=== PATIENT | male | born 1980 | race Caucasian/White ===

== ENCOUNTER 2017-08-24 10:12 | Day surgery (SDC) | payer BC, SELFPAY ==
[2017-08-24] VITALS (7 sets, daily range): BP systolic 127–142; BP diastolic 76–96; PULSE 55–73; RESP 16; TEMP 36–36.5; O2SAT 92–99; BMI 30.9
[2017-08-24] MEDS: Cefazolin 2 GM in 0.9% Normal Saline 100 ML IV (12:24)
--- NOTE | 2017-08-24 14:56 | PCM.DC.ORTHO ---
Discharge Diet: No Restrictions - may remove dressings and apply bandaids to incision sites after 4 days, may get incision wet after 4 days, may move elbow and hand as tolerated and do pendulums for shoulder Discharge Activity: May Not Drive May shower in (days): 1 Ice area for (Minutes): 20 - Every hour while awake. Weight Bearing Status: Weight bearing as tolerated Keep extremity elevated above heart level: Operative Extremity Call your doctor if your incision/area has: Continuous Slow Oozing, Sudden Increased Bleeding, Increased Pain/ Swelling, Increased Redness, Foul Smelling Discharge Call your doctor if you observe: Fever of 101 or Higher, Coldness, Increased Pain, Numbness or Tingling, Change in Color, Calf discomfort Allergies/Adverse Reactions: Allergies Tetanus Vaccines and Toxoid [Tetanus Vaccines & Toxoid] Allergy (Verified 08/17/17 15:32) Other COULD NOT MOVE ARM FOR 2 DAYS hydrocodone bitartrate [From Vicodin] Adverse Reaction (Verified 08/17/17 15:32) Nausea Medications to take at Discharge Amlodipine [Norvasc] 10 mg PO DAILY 05/21/15 acetaminophen 325 mg tablet 650 mg PO Q4H PRN 07/28/17 ibuprofen 200 mg capsule 200 mg PO PRN PRN 07/28/17 Ondansetron [Zofran] 8 mg PO Q8H PRN PRN #20 tab 08/24/17 Oxycodone HCl/Acetaminophen [Percocet 5/325] 1 - 2 tablet PO Q6H PRN PRN 4 Days #30 tablet 08/24/17 The following prescriptions were given: Oxycodone HCl/Acetaminophen [Percocet 5/325] 1 - 2 tablet PO Q6H PRN PRN 4 Days #30 tablet PRN Reason: Pain Ondansetron [Zofran] 8 mg PO Q8H PRN PRN #20 tab PRN Reason: Nausea Primary Care Physician: Carolyn Patel NP-C [Primary Care Provider] - Please Follow Up With: Jennifer Lujan DO - [phone]
--- NOTE | 2017-08-24 14:57 | PCM.OPRPT ---
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 MRI confirms anterior labral tear and biceps tendinosis. As well as some subacromial impingement. Risks benefits and alternatives surgery was discussed with patient. Risks including but not limited to blood loss, blood clot, infection, neurovascular injury, failure procedure, loss of life and loss of limb. Patient is failed conservative treatment like to proceed with right shoulder arthroscopy repair is indicated. Operative note Patient seen and examined preoperative holding area. Right shoulder was marked. Patient brought to the operating room placed supine on the operating table. Signing, anesthesia, antibiotics for Mr. The right shoulder patient was then placed in lateral decub on the left side and an axillary roll was placed on her left axilla. All bony prominences well-padded and the right arm was prepped and draped usual sterile fashion. Marked out a bony landmarks for our portal placement. Timeout was performed. We then began our diagnostic arthroscopy after insufflated the glenohumeral joint posteriorly with 60 cc of normal saline. We will I am able to visualize the anterior labrum which was torn off of the inferior edge to from about 6:00 to 11:00 and some cartilage damage on the anterior inferior aspect of the shoulder as well. We then created 2 anterior last one anterior lateral and anterior inferior portals under direct visualization and placed appropriate peripheral cannulas Arthrex and then. We then began with our release of the labrum off of the glenoid. We used elevator and then used the shaver to prep of the bone for good healing. We then placed our first suture tack that the about the 5 o'clock position and then a second at the 4 and there was single loaded we did tie horizontal sutures and getting a good bump with each not configuration. At the 330 position we then placed a 2 9 push lock using a looped fiber link and lateral configuration. We had good reduction of the inferior glenoid as well as her anterior inferior bumper. We then visualized the humerus from her anterior superior portal and noticed we had center line and the humeral head and the glenoid and no anterior posterior translation of the humeral head. We then did perform a biceps tenotomy. We then moved to our clinic subacromial space. We created a lateral portal under direct visualization. There was thickened bursa throughout. This was gently debrided with a accommodation of a shaver and a burner. He also had a type II acromion was gently resected with the bur as well. We irrigated the tocolysis with copious amounts of sterile saline. We then moved to her open biceps tenodesis. We reprepped the area and then used a 15 blade cut the skin about 2 cm in length and then dissected down to level the biceps tendon upon trying to relieve the biceps tendon was quite tethered proximally and was unable to release until approximately 3 decided that applied with scar and proximally did not need to perform a tenodesis to the left as is. We irrigated the incision with copious amounts of sterile saline. The incision was closed with interrupted subcutaneous 2-0 Vicryl in a running 4-0 Monocryl the portals were closed with interrupted 4-0 nylon stitches sterile dressings were applied patient was placed in ultra ER sling. Patient tolerated the procedure well there are no complications patient was transferred to the recovery room in stable condition. Next Postoperative note Nonweightbearing right lower extremity Pharmacy has prescriptions May use elbow as tolerated Call with increased pain numbness tingling or further issues arise Follow-up in 2 weeks This note was generated with [employer] dictation software. It may contain incorrect words, spelling, and punctuation that were not noted in checking the note before signing.
[2017-08-24] MEDS: Mupirocin Ointment 22gm Tube 1 APPLIC (15:00)
== END 2017-08-24 18:33 | disposition home or self-care (01) ==
LOC: SDC 10:13 → ACINP 10:16 → AC 13:56
PROVIDERS: Family Provider Nurse Practitioner Family; PCP Nurse Practitioner Family; Visit Provider Orthopaedic Surgery
PROC: (CPT 29828; principal; 2017-08-24 11:40)
DX: S43.431A Superior glenoid labrum lesion of right shoulder, initial encounter (principal); X58.XXXA Exposure to other specified factors, initial encounter; M75.41 Impingement syndrome of right shoulder; M25.311 Other instability, right shoulder; M75.21 Bicipital tendinitis, right shoulder; I49.9 Cardiac arrhythmia, unspecified; I10 Essential (primary) hypertension; G40.909 Epilepsy, unspecified, not intractable, without status epilepticus; F17.200 Nicotine dependence, unspecified, uncomplicated
CPT/HCPCS: 29806; 29822; 64415; J7030; J7120; J2405

== ENCOUNTER 2018-09-28 21:13 | Emergency (ER) | payer SELFPAY ==
[2018-09-28 21:14] VITALS: BP 149/89; PULSE 71; RESP 16; TEMP 36.9; O2SAT 96; BMI 32.1
[2018-09-28] MEDS: Acetaminophen 500 MG Tablet 1000 MG PO (22:14)
[2018-09-28] MEDS: LORazepam 2 MG/ML Syringe 1 MG IV (22:15)
--- NOTE | 2018-09-28 22:27 | ED.RN ---
CALLED TO ROOM BY PT'S SO, SHE STATES PT IS HAVING ANOTHER SEIZURE. THIS RN ARRIVED TO SEE PT WITH EYES CLOSED, SLIGHT MOVEMENTS WITH PT'S LIMBS. 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 AFTER SEVERAL SECONDS, PT OPENED EYSES AND STATES WHERE AM I?. PT ALERT, ABLE TO SIT UP AND TALK AFTER, TEXTING CELL PHONE. MD IN ROOM WELL.
[2018-09-28] MEDS: levETIRAcetam IV 1,000 MG/100 ML BAG 400 MG IV (22:53)
--- NOTE | 2018-09-28 23:44 | ED.DCSUM_ITS ---
- ER Visit Summary Date of Service: 09/28/18 Chief Complaint: Seizure History of Present Illness: The patient is a 37 M who sees Corrie Patel. He states he has not seen a neurologist for approximately 1 year. Is also not been on Dilantin for the past year. He reports he has had seizures for approximately 4 years and has had imaging for this. States his last seizure was approximately 1 month ago. States that all his seizures have been while he is asleep. Significant other reports that this evening he had been sleeping for a few minutes and had diffuse tonic-clonic activity lasted approximately 1 minute. There was a 1 minute break and then he had a second episode lasted approximately 1 minute. There is approximately 3-minute break and had a third episode lasted approximately 1 minute. He did seem confused afterwards. Patient did not bite his tongue. No urinary incontinence. Physical Examination: Vitals: Stable. Afebrile. General: Well-nourished and well-developed. Head: Normocephalic atraumatic. Neck: Supple, no lymphadenopathy. No JVD. Nontender. Cardiovascular: Regular rate and rhythm. No murmurs. Respiratory: No respiratory distress. Clear to auscultation bilaterally. Abdominal: Soft, nontender, nondistended, normal bowel sounds. No guarding, rebound, or peritoneal signs. Back: Nontender. Extremities: Nontender, no edema. Skin: Normal color, no rash. Neurologic: Alert and oriented ?3. Cranial nerves II through XII are intact. Normal strength and sensation. Psych: Normal affect. Emergency Department Course and Treatment: Patient had an episode in the emergency department where he was not asleep and had tonic-clonic activity lasted approximately 1 minute. There were no change in vital signs. He was not hypoxic at that time. He did not become tachycardic. However, he was given a dose of Ativan IV and Keppra IV. Treatment Plan: I have attempted to reach neurology for approximately 2 hours without success. Patient will be discharged on Keppra. Instructed to follow-up with Dr. Padilla as soon as possible. I had a very blunt conversation with the patient that he cannot drive again until he is cleared by neurology. I also spoke with him that this would be a minimum of 6 months. The patient does understand this. We talked about the risk of harm to himself or others if he had a seizure while driving. Return to the emergency department for any worsening symptoms. Disposition: To home in improved and stable condition. Impression: 1. Seizure, recurrent. This note was generated with [employer] software. It may contain incorrect words, spelling, and punctuation that were not noted in review of the chart prior to signing ED Disposition - Plan for ED Patient: Instructions: ED Seizure Recurrent Prescriptions: Levetiracetam [Keppra] 500 mg PO BID #60 tablet Referrals: Patrick Padilla MD [STAFF PHYSICIAN] - As soon as possible
[2018-09-29 00:05] VITALS: BP 121/79; PULSE 62; RESP 18; O2SAT 98
--- NOTE | 2018-09-29 00:14 | ED.RN ---
WRITTEN ON DISCHARGE ORDERS DO NOT DRIVE UNTIL CLEARED BY NEUROLOGY PT VERIFIES NO DRIVING ALLOWED WITH VERBALIZES A YES I UNDERSTAND.
== END 2018-09-29 00:16 | disposition home or self-care (01) ==
LOC: ED 21:58
PROVIDERS: Emergency Provider Emergency Medicine; Family Provider Nurse Practitioner Family; PCP Nurse Practitioner Family
DX: G40.909 Epilepsy, unspecified, not intractable, without status epilepticus (principal); I10 Essential (primary) hypertension; Z79.899 Other long term (current) drug therapy; Z72.0 Tobacco use
CPT/HCPCS: 96365; 96375; 99285; J7040; A4216

== ENCOUNTER 2018-12-15 20:56 | Emergency (ER) | payer SELFPAY ==
[2018-12-15 20:56] VITALS: BP 152/83; PULSE 74; RESP 16; TEMP 36.8; O2SAT 98; BMI 32.5
[2018-12-15 21:43] VITALS: BP 151/82; PULSE 66; RESP 16; O2SAT 95; O2SAT 97
--- NOTE | 2018-12-15 22:25 | EKG12_ITS ---
Test Reason : COLD SX Blood Pressure : / mmHG Vent. Rate : 063 BPM Atrial Rate : 063 BPM P-R Int : 140 ms QRS Dur : 098 ms QT Int : 400 ms P-R-T Axes : 033 064 058 degrees QTc Int : 409 ms Normal sinus rhythm Normal ECG Confirmed by HECTOR ALVARADO, NAZARIO ([id number]), index editor KUMAR LOZANO ([id number]) on 12/19/2018 8:53:55 AM Referred By: BB Confirmed By:NAZARIO YOUNG MD
[2018-12-15 22:38] VITALS: BP 145/90; PULSE 60; RESP 18; O2SAT 96
[2018-12-15] MEDS: 0.9% Normal Saline 1,000 ML 1000 ML IV (22:39)
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
[2018-12-15 22:51] LABS: Absolute Lymphocyte Count 3.28 X10^3/ul (0.83-4.51); Absolute Neutrophil Count 6.7 X10^3/uL (2.0-7.7); Basophil# 0.02 X10^3/uL; Basophil% 0.2 % (0-1); Eosinophil# 0.23 X10^3/uL; Eosinophils% 2.1 % (0-5); Hematocrit 40.3 % (40-54); Hemoglobin 13.8 g/dl (13.0-16.5); Lymphocyte # 3.28 X10^3/ul (4.0); Mean Corp Hgb Conc 34.2 g/gl (32-36); Mean Corpuscular Hgb 29.2 pg (27.0-32.0); Mean Corpuscular Volume 85.2 fL (80-94); Mean Platelet Vol. 10.6 fl (6.2-12.0); Monocyte# 0.71 X10^3/uL; Monocyte% 6.5 % (0-10); Neutrophil # 6.66 X10^3/uL (2.7-7.7); Platelet Count 225 K/mm3 (150-450); RBC Distribution Width CV 14.2 % (11.6-14.6); RBC Distribution Width SD 44.8 fl (35.1-43.9); Red Blood Count 4.73 M/mm3 (4.6-6.2); White Blood Count 10.9 K/mm3 (4.4-11.0)
[2018-12-15 22:52] LABS: POSITIVE COUNT NO; POSITIVE DIFFERENTIAL NO; POSITIVE MORPHOLOGY NO
[2018-12-15 23:08] LABS: Anion Gap 7 (5-15); BUN 18 mg/dL (7-18); BUN/Creat Ratio 17.1 RATIO (10-20); Calcium,Total 8.8 mg/dL (8.5-10.1); Chloride 109 mmol/L (98-107); Creatinine, Serum 1.05 mg/dL (0.70-1.30); EST Glomerular Filtration Rate 85 mL/min (>60); Est Glom Filt Rate - Afr Amer 103 mL/min (>60); Glucose 97 mg/dL (74-106); Potassium 3.6 mmol/L (3.5-5.1); Sodium Level 140 mmol/L (136-145)
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
[2018-12-16] MEDS: Ketorolac 30 MG/ML Syringe IV (00:15)
[2018-12-16 00:22] VITALS: BP 138/75; PULSE 63; RESP 16; O2SAT 97
== END 2018-12-16 00:23 | disposition home or self-care (01) ==
PROVIDERS: Emergency Provider Emergency Medicine; Family Provider Nurse Practitioner Family; PCP Nurse Practitioner Family
DX: B34.9 Viral infection, unspecified (principal); R07.9 Chest pain, unspecified; R51 Headache; I10 Essential (primary) hypertension; G40.909 Epilepsy, unspecified, not intractable, without status epilepticus; Z79.899 Other long term (current) drug therapy; Z72.0 Tobacco use
CPT/HCPCS: 71046; 80048; 84484; 85025; 93005; 96374; 99285; J7030

== ENCOUNTER 2018-12-29 20:37 | Emergency (ER) | payer SELFPAY ==
[2018-12-29 20:38] VITALS: BP 152/88; PULSE 88; RESP 16; TEMP 36.1; O2SAT 97; BMI 32.5
--- NOTE | 2018-12-29 21:02 | RAD_ITS ---
STUDY: X-RAY - RIGHT WRIST REASON FOR EXAM: Male, 38 years old. Wrist pain TECHNIQUE: 3 view(s) of the wrist were obtained. COMPARISON: None. FINDINGS: Normal visualized distal radius and ulna. Normal radiocarpal articulation. Normal distal radioulnar articulation. 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 Normal carpometacarpal articulation of the thumb. Normal second through fifth carpometacarpal articulations. Normal visualized metacarpal bones. There is soft tissue edema.. RAD/Wrist min 3 Views IMPRESSION: Soft tissue edema Partial bony fusion of carpal bones, no fractures Electronically Signed: Ervin Arboleda, at 21:26 EDT Tel , Service support ,
[2018-12-29] MEDS: Naproxen 500 MG Tablet PO (21:25)
--- NOTE | 2018-12-29 21:43 | ED.VISSUMM ---
- ER Visit Summary Date of Service: 12/29/18 Chief Complaint: Right wrist injury History of Present Illness: The patient is a 38 M who was sitting on the volar right wrist by a baseball. He has an area of swelling and redness. He denies paresthesias. Physical Examination: Vital signs unremarkable. Patient lying in bed no acute distress. Right upper extremity examination reveals hematoma on the volar distal right forearm. Strong hand grasp is noted. There is no tenderness to the elbow or shoulder. Test Results: Right wrist x-rays obtained per nursing protocol revealed soft tissue edema with no evidence of fracture. Emergency Department Course and Treatment: Patient is given naproxen and ice pack here. Following x-ray results area is wrapped with an Piyush wrap. Treatment Plan: [] Disposition: Discharge Impression: Right wrist contusion This note was generated with [employer] dictation software. It may contain incorrect words, spelling, and punctuation that were not noted in review of the chart prior to signing ED Disposition - Plan for ED Patient: Disposition: Home or Assisted Living Instructions: CONTUSION, Upper Extremity Prescriptions: Naproxen [Naprosyn] 500 mg PO BID PRN #20 tab Prescription Printed Referrals: Carolyn Patel NP-C [Primary Care Provider] - 1 Week if not improving
== END 2018-12-29 21:53 | disposition home or self-care (01) ==
PROVIDERS: Emergency Provider Emergency Medicine; Family Provider Nurse Practitioner Family; PCP Nurse Practitioner Family
DX: S60.211A Contusion of right wrist, initial encounter (principal); W21.03XA Struck by baseball, initial encounter; I10 Essential (primary) hypertension; Z72.0 Tobacco use
CPT/HCPCS: 73110; 99283

== ENCOUNTER 2019-01-13 02:16 | Emergency (ER) | payer SELFPAY ==
[2019-01-13 02:17] VITALS: BP 147/96; PULSE 79; RESP 28; TEMP 36.5; O2SAT 100; BMI 31.6
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
--- NOTE | 2019-01-13 02:32 | ED.VIS.DYS ---
History of Present Illness Chief Complaint: Shortness of Breath Informant: Patient Onset: Today Activity at onset: Sleep Timing: Continuous Quality: Wheezing Current Severity: Moderate Maximum Severity: Moderate Worsened by: Coughing, Exertion Relieved by: Rest Associated Symptoms: Bloody Sputum - scant amt just today, Clear sputum, Cough - x1 week, Sore throat - mild, scratchy. Negative for: Fever Chest Pain: None PE Risk Factors: Negative for: Cancer, OCP + Smoking + > 35, Prior DVT or PE, Recent immobilization, Recent surgery, Recent travel Prior similar symptoms: Yes - 2-3 wks ago, steroids helped Recent Illness/Hospitalization: No - Past Medical History (1) HTN (hypertension) Status: Chronic Past Medical History - Allergies and Home Meds Allergies/Adverse Reactions: Allergies Tetanus Vaccines and Toxoid [Tetanus Vaccines & Toxoid] Allergy (Verified 01/13/19 02:19) Other COULD NOT MOVE ARM FOR 2 DAYS hydrocodone bitartrate [From Vicodin] Adverse Reaction (Verified 01/13/19 02:19) Nausea lorazepam [From Ativan] Adverse Reaction (Verified 01/13/19 02:19) Other MOOD CHANGES Primary Care Physician: Carolyn Patel NP-C [Primary Care Provider] - Smoking Status: Current every day smoker Drugs: None Physical Exam Vital Signs/Narrative: Vital Signs Temp Pulse Resp BP Pulse Ox 01/13/19 02:17 97.7 F L 79 28 H 147/96 H 100 Inital Vital Signs reviewed: Yes General: Well nourished, Well developed, No Acute Distress Head: Normocephalic, Atraumatic Eyes: Perrl, EOMI ENT: Moist mucous membranes, No rhinorrhea, TM's clear, - - POP clear, symmetric, w/o exudates. Negative for: Sinus tenderness Neck: Supple, Nontender, No lymphadenopathy, No JVD Cardiovascular: Regular rate, Regular rhythm, No murmurs, Normal S1, Normal S2. Negative for: Tachycardia Respiratory: No distress, Chest nontender, Wheezing - harsh, throughout expiration all cisneros, - - prolonged expiration. Negative for: Rales, Rhonchi Abdomen: Soft, Nontender, Nondistended, Normal bowel sounds Back: Nontender, Normal Inspection Extremities: Nontender, No edema. Negative for: Calf Tenderness Skin: Normal color, No rash, No Trauma Neurological: Alert, Oriented x3, Cranial nerves II-XII grossly intact, Normal Strength, Normal Sensation Psychological: Normal affect, Normal Mood Diagnostic/Tx/Re-eval Clinical Impression(s) from Imaging Studies Chest X-Ray 01/13/19 02:31 IMPRESSION: Negative x-ray examination of the chest. Electronically Signed: Selvin Costa, at 3:10 EDT Tel , Service support , Treatment - Dyspnea: Albuterol, Atrovent Repeat Evaluation: Improved - Medical Decision Making After treatment, he is feeling better. Still a little wheezy, declines offer for more treatments. Vital signs are stable. Pulse ox is good. Chest x-ray shows no pneumonia. Will treat with steroids and advised that he follow-up with pulmonary, given a prescription for an albuterol inhaler as well. He is comfortable with that plan. I do not see any indication for antibiotics at this time. ED Disposition - Plan for ED Patient: Disposition: Home or Assisted Living Diagnosis: Acute bronchitis, Reactive airway disease Instructions: BRONCHITIS with Wheezing (Adult) Prescriptions: predniSONE tablet 40 mg PO DAILY #8 tab Prescription Printed Albuterol Inhaler [Ventolin Hfa] 1 - 2 puff INHALATION Q4H PRN PRN #1 inhaler PRN Reason: Wheezing Prescription Printed Referrals: Carolyn Patel NP-C [Primary Care Provider] - Keyur Santo DO [STAFF PHYSICIAN] - (call for pulmonary appt)
[2019-01-13 02:37] VITALS: PULSE 73; RESP 22
[2019-01-13] MEDS: Ipratropium/Albuterol Sulfate 3 ML AMPUL.NEB INHALATION (02:37)
[2019-01-13] MEDS: Albuterol 2.5 MG/3 ML VIAL.NEB. INHALATION (02:37)
[2019-01-13] MEDS: predniSONE 20 MG Tablet 40 MG PO (03:02)
[2019-01-13 03:32] VITALS: BP 140/101; PULSE 72; RESP 16; O2SAT 100
== END 2019-01-13 03:33 | disposition home or self-care (01) ==
PROVIDERS: Emergency Provider Emergency Medicine; Family Provider Nurse Practitioner Family; PCP Nurse Practitioner Family
DX: J20.9 Acute bronchitis, unspecified (principal); J45.909 Unspecified asthma, uncomplicated; I10 Essential (primary) hypertension; F17.200 Nicotine dependence, unspecified, uncomplicated; Z79.899 Other long term (current) drug therapy
CPT/HCPCS: 71046; 94640; 99283

== ENCOUNTER 2019-02-06 07:04 | Emergency (ER) | payer SELFPAY ==
[2019-02-06 07:05] VITALS: BP 188/96; PULSE 79; RESP 18; TEMP 36.4; O2SAT 96; BMI 33.4
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
[2019-02-06] MEDS: 0.9% Normal Saline 1,000 ML 999 ML IV (08:06)
[2019-02-06] MEDS: Ketorolac 30 MG/ML Syringe IV (09:25)
[2019-02-06 09:37] VITALS: BP 151/102; PULSE 60; RESP 16; O2SAT 97
== END 2019-02-06 09:38 | disposition home or self-care (01) ==
PROVIDERS: Emergency Provider Emergency Medicine; Family Provider Nurse Practitioner Family; PCP Nurse Practitioner Family
DX: S02.2XXA Fracture of nasal bones, initial encounter for closed fracture (principal); W21.07XA Struck by softball, initial encounter; Y93.9 Activity, unspecified; Y92.9 Unspecified place or not applicable; I10 Essential (primary) hypertension; G40.909 Epilepsy, unspecified, not intractable, without status epilepticus; Z79.899 Other long term (current) drug therapy; Z72.0 Tobacco use
CPT/HCPCS: 70450; 96361; 96374; 99283; J7030; A4216

== ENCOUNTER 2019-05-21 07:53 | Emergency (ER) | payer SELFPAY ==
[2019-05-21 07:56] VITALS: BP 155/101; PULSE 71; RESP 18; TEMP 37; O2SAT 96; BMI 33.9
--- NOTE | 2019-05-21 08:09 | CT_ITS ---
STUDY: CT BRAIN WITHOUT CONTRAST REASON FOR EXAM: Male, 38 years old. Headaches. Lightheadedness and seizure disorder. RADIATION DOSAGE (If Supplied By Facility): CTDIvol = ( 44.99 ) mGy, DLP = ( 745.49 ) mGycm TECHNIQUE: Transaxial CT imaging of the brain was performed without administration of intravenous contrast material. Individualized dose optimization techniques were used for this CT. COMPARISON: Comparison is made with prior study dated February 06, 2019. FINDINGS: Normal soft tissue structures. Normal calvarium. Normal size ventricles and extra-axial spaces for the patient's age. Normal white matter tracts of the cerebral hemispheres. Normal basal ganglia and thalami. Normal brainstem. Normal cerebellum. There is no intracranial hemorrhage. There are no findings of an acute ischemic infarction. Normal visualized paranasal sinuses. CT/Brain/Head without Contrast IMPRESSION: Normal unenhanced CT scan of the brain. Electronically Signed: Mairn Recio, at 8:32 EST , Service support ,
--- NOTE | 2019-05-21 08:09 | EKG12_ITS ---
Test Reason : DIZZY Blood Pressure : / mmHG Vent. Rate : 067 BPM Atrial Rate : 067 BPM P-R Int : 136 ms QRS Dur : 098 ms QT Int : 380 ms P-R-T Axes : 030 047 078 degrees QTc Int : 401 ms Normal sinus rhythm Normal ECG Confirmed by HECTOR ALVARADO, NAZARIO ([id number]), index editor HARDIK HENDERSON ([id number]) on 05/22/2019 1:50:17 PM Referred By: CASIMIRO/SVITLANA Confirmed By:NAZARIO YOUNG MD
--- NOTE | 2019-05-21 08:13 | ED.DCSUM_ITS ---
- ER Visit Summary Date of Service: 05/21/19 Chief Complaint: Dizzy, blurry vision History of Present Illness: The patient is a 38 M who has dizziness and blurry vision. He will this way when he was driving home. He describes it more as a spinning sensation. He has a headache and heartburn as well. He checked his blood pressure multiple times at work last night and it was high and then came down. He does have a history of hypertension and is been medication compliant. Denies any falls or head trauma. His main complaint now is of a headache. He has no neck pain. No history of migraine headaches. Physical Examination: Vital signs reviewed. HEENT exam unremarkable. Heart is regular rate and rhythm without murmurs. Lungs are clear to auscultation. Abdomen is soft and nontender. Extremities reveal no edema. Skin exam normal. Neurologic exam normal. Test Results: EKG is sinus rhythm with rate of 67. Nonspecific inferior changes noted. CAT scan of the head normal. Laboratory studies are normal except for a white blood cell count of 12.5. Emergency Department Course and Treatment: Patient was given normal saline and Toradol. Upon reevaluation at 0 930, his symptoms are improved. He is feeling better. I am not clear as to what is causing his symptoms. The headache could be causing his dizziness. At this point I will give him naproxen to help with headaches at home. He will increase hydration and will follow up with his PCP. Treatment Plan: [] Disposition: Discharge Impression: Dizziness, headache This note was generated with [employer] dictation software. It may contain incorrect words, spelling, and punctuation that were not noted in review of the chart prior to signing ED Disposition - Plan for ED Patient: Referrals: Carolyn Patel, ENRIQUETA-C [Primary Care Provider] -
[2019-05-21 08:18] LABS: Absolute Lymphocyte Count 3.21 X10^3/uL (0.83-4.51); Absolute Neutrophil Count 8.1 X10^3/uL (2.0-7.7); Basophil# 0.04 X10^3/uL; Basophil% 0.3 % (0-1); Eosinophils% 1.6 % (0-5); Hematocrit 42.5 % (40-54); Hemoglobin 14.4 g/dL (13.0-16.5); Lymphocyte # 3.21 X10^3/ul (4.0); Lymphocyte % 25.8 % (19-41); Mean Corp Hgb Conc 33.9 g/dL (32-36); Mean Corpuscular Hgb 28.6 pg (27.0-32.0); Mean Corpuscular Volume 84.3 fL (80-94); Mean Platelet Vol. 11.1 fl (6.2-12.0); Monocyte# 0.83 X10^3/uL; Monocyte% 6.7 % (0-10); NRBC Flagged by Analyzer 0 % (0-5); Neutrophil # 8.08 X10^3/uL (2.7-7.7); Neutrophil % 64.9 % (47-70); Platelet Count 247 K/mm3 (150-450); RBC Distribution Width CV 13.3 % (11.6-14.6); RBC Distribution Width SD 41.1 fl (35.1-43.9); Red Blood Count 5.04 M/mm3 (4.6-6.2); White Blood Count 12.5 K/mm3 (4.4-11.0)
[2019-05-21 08:39] LABS: ALB/GLOB Ratio 1.2 RATIO (0.9-2.4); AST(SGOT) 16 U/L (15-37); Alanine Aminotransfer ALT/SGPT 27 U/L (16-61); Albumin, Serum 3.9 g/dL (3.2-5.0); Alkaline Phosphatase 60 U/L (45-117); Anion Gap 6 (5-15); BUN 19 mg/dL (7-18); BUN/Creat Ratio 17.8 RATIO (10-20); Calcium,Total 9.4 mg/dL (8.5-10.1); Chloride 107 mmol/L (98-107); Creatinine, Serum 1.07 mg/dL (0.70-1.30); EST Glomerular Filtration Rate 83 mL/min (>60); Est Glom Filt Rate - Afr Amer 100 mL/min (>60); Estimated Creatinine Clearance 92.34 ml/min; Globulin 3.2 g/dL (2.2-4.2); Glucose 95 mg/dL (74-106); Potassium 3.7 mmol/L (3.5-5.1); Protein, Total 7.1 g/dL (6.4-8.2); Sodium Level 138 mmol/L (136-145)
[2019-05-21] MEDS: 0.9% Normal Saline 1,000 ML 1000 ML IV (09:01)
[2019-05-21] MEDS: Ketorolac 30 MG/ML Syringe IV (09:01)
--- NOTE | 2019-05-21 09:35 | ED.DEP ---
ED Disposition - Plan for ED Patient: Disposition: Home or Assisted Living Instructions: DIZZINESS, Unk Cause Prescriptions: Naproxen [Naprosyn] 500 mg PO BID PRN #20 tab Prescription Printed Referrals: Carolyn Patel NP-C [Primary Care Provider] -
== END 2019-05-21 09:46 | disposition home or self-care (01) ==
PROVIDERS: Emergency Provider Emergency Medicine; Family Provider Nurse Practitioner Family; PCP Nurse Practitioner Family
DX: R42 Dizziness and giddiness (principal); R51 Headache; I10 Essential (primary) hypertension; G40.909 Epilepsy, unspecified, not intractable, without status epilepticus; F17.200 Nicotine dependence, unspecified, uncomplicated; Z79.899 Other long term (current) drug therapy
CPT/HCPCS: 70450; 80053; 84484; 85025; 93005; 96361; 96374; 99285; J7030; A4216

== ENCOUNTER → 2019-07-07 09:40 | Outpatient (CLI) | payer BC, SELFPAY ==
[2019-06-20 09:16] VITALS: BMI 33.9
--- NOTE | 2019-07-07 09:41 | MRI_ITS ---
HISTORY: Right hand cyst at area of base of fifth metacarpal. Sixth series. 164 images. Comparison x-rays are from December 29, 2018. Findings: Motion artifact is fairly severe. This is especially present on the axial STIR series. This significantly limits the utility of the study. Within the subcutaneous fat, confluence with the skin, there is a lesion. It is confined to the fat, and does not involve the superficial muscles. The lesion appears to be prominent causing a bulge within the skin. It measures 9 x 11 x 6 mm. It is hyperintense relative to adjacent muscles. On T1-weighted imaging. It is hypointense relative to adjacent fat on T1-weighted imaging. It is hyperintense relative to fat and muscle on the STIR series. It is slightly heterogeneous in signal. Marrow signal is normal. Bony alignment is normal. Joint spaces are preserved. Flexor and extensor tendons are normal in signal and continuous throughout their course. The median and ulnar nerves are not enlarged. MRI/Upper Ext/No Jt/ wo IMPRESSION: 9 x 11 x 6 mm nodule within the subcutaneous fat at the base of the fifth metatarsal, just barely superficial to the adductor digiting minimi. This tumor is of unknown etiology. It could be something as simple as a benign granuloma, however, soft tissue tumors such as giant cell tumor of the soft parts, cutaneous angiomyolipoma, and more insidious lesions remain within the differential. at 0624 Reported and signed by: Jose Cruz Lopez MD Electronically Signed: Jose Cruz Lopez MD at 6:23 EST Tel , Service support ,
== END ==
LOC: MRI 09:41
PROVIDERS: Family Provider Nurse Practitioner Family; PCP Nurse Practitioner Family; Referring Provider Orthopaedic Surgery; Visit Provider Orthopaedic Surgery
DX: R22.31 Localized swelling, mass and lump, right upper limb (principal)
CPT/HCPCS: 73218

== ENCOUNTER → 2019-08-09 11:51 | Outpatient (CLI) | payer SELFPAY ==
[2019-06-20 09:16] VITALS: BMI 33.9
--- NOTE | 2019-08-09 11:56 | RAD_ITS ---
STUDY: X-RAY - LEFT HAND, ATTENTION INDEX FINGER REASON FOR EXAM: Male, 38 years old. Patient smashed his left index finger in to pieces of equipment 2 days ago. Pain, swelling and laceration to left index finger PIP joint. TECHNIQUE: 3 view(s) of the finger were obtained. COMPARISON: None. FINDINGS: Normal metacarpal head. Normal metacarpophalangeal joint. Normal proximal phalanx. Normal middle phalanx. Normal distal phalanx. Normal proximal interphalangeal joint. Normal distal interphalangeal joint. Diffuse soft tissue swelling. RAD/Finger(s) Min 2 Views IMPRESSION: Diffuse soft tissue swelling. Electronically Signed: Marin Recio, at 12:22 EST , Service support ,
== END ==
LOC: RAD 11:54
PROVIDERS: PCP Nurse Practitioner Family; Referring Provider Nurse Practitioner Family; Visit Provider Nurse Practitioner Family
DX: S69.92XA Unspecified injury of left wrist, hand and finger(s), initial encounter (principal); W23.0XXA Caught, crushed, jammed, or pinched between moving objects, initial encounter
CPT/HCPCS: 73140

== ENCOUNTER 2019-09-06 15:24 | Emergency (ER) | payer SELFPAY ==
[2019-06-20 09:16] VITALS: BMI 33.9
[2019-09-06 15:26] VITALS: BP 139/74; PULSE 76; RESP 18; TEMP 36.7; O2SAT 97; BMI 34.2
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
--- NOTE | 2019-09-06 16:22 | EKG12_ITS ---
Test Reason : CHEST PAIN Blood Pressure : / mmHG Vent. Rate : 068 BPM Atrial Rate : 068 BPM P-R Int : 146 ms QRS Dur : 092 ms QT Int : 386 ms P-R-T Axes : 040 050 054 degrees QTc Int : 410 ms Normal sinus rhythm with sinus arrhythmia Nonspecific T wave abnormality Abnormal ECG Confirmed by CAPO ALVARADO, RANDA ([id number]), assistant production editor KUMAR LOZANO ([id number]) on 09/10/2019 9:49:54 AM Referred By: AYLIN Confirmed By:RANDA SCANLON MD
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
[2019-09-06] MEDS: morphine 8 MG/ML Syringe IM (16:30)
[2019-09-06] MEDS: Ondansetron ODT 4 MG Tablet PO (16:30)
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
[2019-09-06 18:01] VITALS: BP 131/77; PULSE 62; RESP 15; O2SAT 98
--- NOTE | 2019-09-13 21:04 | ED.RN ---
patient called in asking about doctor who cared for him for insurance information
== END 2019-09-06 18:02 | disposition home or self-care (01) ==
LOC: ED 16:44
PROVIDERS: Emergency Provider Emergency Medicine; PCP Nurse Practitioner Family
DX: S16.1XXA Strain of muscle, fascia and tendon at neck level, initial encounter (principal); S20.212A Contusion of left front wall of thorax, initial encounter; V89.2XXA Person injured in unspecified motor-vehicle accident, traffic, initial encounter; Y93.89 Activity, other specified; Y92.9 Unspecified place or not applicable; I10 Essential (primary) hypertension; Z72.0 Tobacco use
CPT/HCPCS: 71101; 72040; 93005; 96372; 99283

== ENCOUNTER 2020-01-02 22:52 | Emergency (ER) | payer BC, SELFPAY ==
[2019-11-12 13:08] VITALS: BMI 34.2
[2020-01-02 22:55] VITALS: BP 149/106; PULSE 79; RESP 17; TEMP 36.9; O2SAT 97; BMI 37.4
--- NOTE | 2020-01-02 23:05 | CT_ITS ---
STUDY: CT BRAIN WITHOUT CONTRAST REASON FOR EXAM: Male, 39 years old. WHILE PLAYING SOFTBALL PT HIT HEAD ON FENCE THEN SEIZED TWICE PER BYSTANDERS, PT HAS HX SZ DISORDER RADIATION DOSAGE (If Supplied By Facility): CTDIvol = ( 44.99 ) mGy, DLP = ( 745.49 ) mGycm TECHNIQUE: Transaxial CT imaging of the brain was performed without administration of intravenous contrast material. Individualized dose optimization techniques were used for this CT. COMPARISON: May 21, 2019 FINDINGS: Normal soft tissue structures. Normal calvarium. Normal size ventricles and extra-axial spaces for the patient''s age. Normal white matter tracts of the cerebral hemispheres. Normal basal ganglia and thalami. Normal brainstem. Normal cerebellum. There is no intracranial hemorrhage. There are no findings of an acute ischemic infarction. Normal visualized paranasal sinuses. CT/Brain/Head without Contrast IMPRESSION: Normal unenhanced CT scan of the brain. Electronically Signed: Chino Lim MD at 23:58 EDT , Service support ,
[2020-01-02] MEDS: Ketorolac 30 MG/ML Syringe IV (23:17)
[2020-01-02] MEDS: 0.9% Normal Saline 1,000 ML 999 ML IV (23:17)
--- NOTE | 2020-01-02 23:17 | ED.VIS.GEN ---
History of Present Illness Chief Complaint: Seizure Informant: Patient Onset: Today - JPTA Context: Sudden Onset - after injury; see below Timing: Intermittent - x 2, Lasts - unk Quality: unk Location: k Current Severity: gone Maximum Severity: Severe Relieved by: nothing, spontaneously abated Associated Symptoms: global headache, myalgias all over Narrative: Patient states he was playing softball, he was playing in the outfield and went to catch a ball, but accidentally ran into the fence, and immediately had a seizure. When it stopped he then had another 1, timing and nature/details of the symptoms are unknown at this time. The patient is amnestic to all of these details and events, he was not conscious. 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 He has a history of high blood pressure for which he takes medication now and nothing else. Other than headache, mildly blurry vision globally, and feeling sore all over, he feels back to normal. - Past Medical History (1) Seizures Status: Chronic (2) HTN (hypertension) Status: Chronic Past Medical History - Allergies and Home Meds Allergies/Adverse Reactions: Allergies Tetanus Vaccines and Toxoid [Tetanus Vaccines & Toxoid] Allergy (Verified 01/02/20 23:02) Other COULD NOT MOVE ARM FOR 2 DAYS hydrocodone bitartrate [From Vicodin] Adverse Reaction (Verified 01/02/20 23:02) Nausea lorazepam [From Ativan] Adverse Reaction (Verified 01/02/20 23:02) Other MOOD CHANGES Primary Care Physician: Carolyn Patel NP-C [Primary Care Provider] - Smoking Status: Current every day smoker Drugs: None Review of Systems General: Reports: Malaise. Denies: Chills, Fever, Sweats Eyes: Reports: Blurred Vision - bilaterally - Nonfocal. Denies: Diplopia ENT: Denies: Rhinorrhea, Sore throat Cardiovascular: Denies: Chest pain, Palpitations Respiratory: Denies: Dyspnea, Cough, Dyspnea on exertion Gastrointestinal: Denies: Abdominal pain, Nausea, Vomiting, Diarrhea, Melena, Hematochezia Genitourinary: Denies: Dysuria, Hematuria, Frequency Musculoskeletal: Reports: Myalgias. Denies: Neck pain, Back pain, Swelling, Extremity Pain Skin: Denies: Rash, Wounds Neurological: Reports: Headache. Denies: Weakness, Numbness Physical Exam Vital Signs/Narrative: Vital Signs Temp Pulse Resp BP Pulse Ox 01/02/20 22:55 98.4 F 79 17 149/106 H 97 Inital Vital Signs reviewed: Yes General: Well nourished, Well developed, No Acute Distress - Well-appearing, conversive in full sentences Head: Normocephalic, Atraumatic - No tenderness elicited throughout scalp, no signs of trauma, no jim sign. Eyes: Perrl, EOMI ENT: Moist mucous membranes, No rhinorrhea, TM's clear - No hemotympanum or otorrhea. No nasal or facial trauma. Neck: Supple, Nontender, No lymphadenopathy Cardiovascular: Regular rate, Regular rhythm, No murmurs Respiratory: No distress, CTA bilaterally, Chest nontender Abdomen: Soft, Nontender, Nondistended, Normal bowel sounds Back: Nontender, Normal Inspection Extremities: Nontender, No edema Skin: Normal color, No rash, No Trauma Neurological: Alert, Oriented x3, Cranial nerves II-XII grossly intact, Normal Strength, Normal Sensation, Normal DTR, Normal Gait Psychological: Normal affect, Normal Mood Diagnostic/Tx/Re-eval Impressions Brain CT 01/02/20 23:05 IMPRESSION: Normal unenhanced CT scan of the brain. Electronically Signed: Chino Lim MD at 23:58 EDT , Service support , 01/02/20 23:05 Brain/Head without Contrast [CT] Stat Laboratory Results 01/02/20 01/02/20 23:20 23:20 WBC 11.9 H RBC 5.35 Hgb 15.2 Hct 44.4 MCV 83.0 MCH 28.4 MCHC 34.2 RDW Std Deviation 39.0 RDW Coeff of Radha 13.0 Plt Count 281 MPV 10.9 Immature Gran % (Auto) 1.000 H Neut % (Auto) 63.5 Lymph % (Auto) 26.5 [place] % (Auto) 6.9 Eos % (Auto) 1.8 Baso % (Auto) 0.3 Absolute Neuts (auto) 7.6 Absolute Lymphs (auto) 3.16 Nucleated RBC % 0 Sodium 138 Potassium 3.1 L Chloride 104 Carbon Dioxide 29.0 Anion Gap 5 BUN 13 Creatinine 1.24 Estim Creat Clear Calc 78.91 Est GFR (MDRD) Af Amer 84 Est GFR (MDRD) Non-Af 70 BUN/Creatinine Ratio 10.5 Glucose 94 Calcium 8.7 - Medical Decision Making Patient was observed for 1-2 hours without any further seizure activity. He was given IV fluids and Toradol and felt improved. Work-up is as above. Mild leukocytosis likely due to demargination if the patient had true seizure activity. Hypokalemia likely due to shift only from metabolic acidosis due to lactate, I suspect. Hence, the IV fluids. He is feeling well and has a family member here, she did not witness the seizure but does not seem surprised, states that when they occur they usually very brief. They agree with discharge home without antiepileptics at this time, unless he ends up having another seizure without repeat trauma, avoiding driving, and following up with his neurologist. He already happens to have an appointment about 2 weeks away which I think is fine if he has no other seizures. We discussed reasons to return. They are comfortable with that plan. ED Disposition - Plan for ED Patient: Disposition: Home or Assisted Living Diagnosis: Closed head injury without loss of consciousness, Post-traumatic seizures Instructions: ED Seizure Recurrent Adult, ED Head Injury Adult Referrals: Carolyn Patel, ENRIQUETA-C [Primary Care Provider] - Neurologist, your [Other] (as scheduled, or sooner (or ER) if another seizure before then)
[2020-01-02 23:32] LABS: Absolute Lymphocyte Count 3.16 X10^3/uL (0.83-4.51); Absolute Neutrophil Count 7.6 X10^3/uL (2.0-7.7); Basophil# 0.04 X10^3/uL; Basophil% 0.3 % (0-1); Eosinophil# 0.21 X10^3/uL; Eosinophils% 1.8 % (0-5); Hematocrit 44.4 % (40-54); Hemoglobin 15.2 g/dL (13.0-16.5); Lymphocyte # 3.16 X10^3/ul (4.0); Lymphocyte % 26.5 % (19-41); Mean Corp Hgb Conc 34.2 g/dL (32-36); Mean Corpuscular Hgb 28.4 pg (27.0-32.0); Mean Platelet Vol. 10.9 fl (6.2-12.0); Monocyte# 0.82 X10^3/uL; Monocyte% 6.9 % (0-10); NRBC Flagged by Analyzer 0 % (0-5); Neutrophil # 7.56 X10^3/uL (2.7-7.7); Neutrophil % 63.5 % (47-70); Platelet Count 281 K/mm3 (150-450); Red Blood Count 5.35 M/mm3 (4.6-6.2); White Blood Count 11.9 K/mm3 (4.4-11.0)
[2020-01-02 23:40] LABS: Anion Gap 5 (5-15); BUN 13 mg/dL (7-18); BUN/Creat Ratio 10.5 RATIO (10-20); Calcium,Total 8.7 mg/dL (8.5-10.1); Chloride 104 mmol/L (98-107); Creatinine, Serum 1.24 mg/dL (0.70-1.30); EST Glomerular Filtration Rate 70 mL/min (>60); Est Glom Filt Rate - Afr Amer 84 mL/min (>60); Estimated Creatinine Clearance 78.91 ml/min; Glucose 94 mg/dL (74-106); Potassium 3.1 mmol/L (3.5-5.1); Sodium Level 138 mmol/L (136-145)
[2020-01-03 00:11] VITALS: BP 132/87; PULSE 65; RESP 14; O2SAT 97
== END 2020-01-03 00:13 | disposition home or self-care (01) ==
PROVIDERS: Emergency Provider Emergency Medicine; PCP Nurse Practitioner Family
DX: S09.90XA Unspecified injury of head, initial encounter (principal); W22.8XXA Striking against or struck by other objects, initial encounter; Y93.64 Activity, baseball; Y92.320 Baseball field as the place of occurrence of the external cause; Y99.8 Other external cause status; G40.909 Epilepsy, unspecified, not intractable, without status epilepticus; I10 Essential (primary) hypertension; F17.200 Nicotine dependence, unspecified, uncomplicated; Z79.899 Other long term (current) drug therapy
CPT/HCPCS: 70450; 80048; 85025; 96361; 96374; 99285; J7030; A4216

== ENCOUNTER 2020-03-04 10:09 | Emergency (ER) | payer BC, SELFPAY ==
[2020-03-04 10:09] VITALS: BP 122/83; PULSE 60; RESP 22; TEMP 37.2; O2SAT 98; BMI 33.5
--- NOTE | 2020-03-04 10:31 | US_ITS ---
STUDY: SCROTUM ULTRASOUND REASON FOR EXAM: Male, 39 years old. TESTICULAR PAIN X 2 DAYS TECHNIQUE: Ultrasound evaluation of the scrotum was performed with color Doppler and static helm-scale imaging. COMPARISON: None. FINDINGS: RIGHT TESTICLE INTRATESTICULAR: There is a normal size of the right testicle. The right testicle measures 5 cm x 3 cm x 2.6 cm. There is a homogenous echotexture. There is normal arterial and normal venous vascularity. There is no demonstrated right testicular mass or cyst. EXTRATESTICULAR: The epididymis is normal in size. The epididymis head measures 1.3 cm x 1.3 cm x 0.8 cm. There is normal vascularity of the epididymis. There is no demonstrated epididymal cystic structure. There is a moderate size hydrocele. There are prominent extratesticular veins consistent with a small varicocele. There is no demonstrated extratesticular mass or cyst. LEFT TESTICLE INTRATESTICULAR: There is a normal size of the left testicle. The left testicle measures 5 cm x 3.2 cm x 2.7 cm. There is a homogenous echotexture. There is normal arterial and normal venous vascularity. There is no demonstrated left testicular mass or cyst. EXTRATESTICULAR: The epididymis is normal in size. The epididymis head measures 1 cm x 0.9 cm x 0.5 cm. There is normal vascularity of the epididymis. There is a well-defined cystic structure within the epididymis, without internal echoes, consistent with an epididymal cyst. This measures 3 mm. There is a small hydrocele. There are prominent extratesticular veins consistent with a small varicocele. There is no demonstrated extratesticular mass or cyst. US/Testicular with Arterial Flow IMPRESSION: Bilateral hydroceles right greater than left. Small bilateral varicoceles. Electronically Signed: Marin Recio, at 12:17 EDT , Service support ,
--- NOTE | 2020-03-04 10:33 | ED.VIS.GEN ---
History of Present Illness Chief Complaint: Flank Pain Informant: Patient Narrative: Patient is a 39-year-old male with a history of hypertension who presents to the ED for left testicular pain. Initially started yesterday. Has progressively getting worse today. Rates the pain as an 8 out of 10. He states he has had a twisted testicle before in the past but denies ever going through any surgery for this. The pain does radiate up into his low of his back on the left side. He does not know aggravating or relieving factors. Took some ibuprofen for yesterday which did not give much relief. No associated abdominal pain. No change in bowel habits. No nausea/vomiting. Denies any fevers or chills. No urinary symptoms including any dysuria, frequency or hematuria. No concern for STDs. He denies any chest pain or shortness of breath. Past Medical History - Allergies and Home Meds Allergies/Adverse Reactions: Allergies Tetanus Vaccines and Toxoid [Tetanus Vaccines & Toxoid] Allergy (Verified 03/04/20 10:20) Other COULD NOT MOVE ARM FOR 2 DAYS hydrocodone bitartrate [From Vicodin] Adverse Reaction (Verified 03/04/20 10:20) Nausea lorazepam [From Ativan] Adverse Reaction (Verified 03/04/20 10:20) Other MOOD CHANGES Primary Care Physician: Gen Penny MD [STAFF PHYSICIAN] - 2 Days Carolyn Patel NP-C [Primary Care Provider] - Past Medical History: - - Seizures, hypertension Smoking Status: Current every day smoker Alcohol: Occasional Drugs: None Review of Systems All systems negative except as indicated General: Denies: Chills, Fever, Sweats Eyes: Denies: Visual changes - bilaterally, Diplopia ENT: Denies: Rhinorrhea, Sore throat Cardiovascular: Denies: Chest pain, Palpitations Respiratory: Denies: Dyspnea, Cough, Dyspnea on exertion Gastrointestinal: Denies: Abdominal pain, Nausea, Vomiting, Diarrhea, Melena, Hematochezia Genitourinary: Reports: - - Testicular pain. Denies: Dysuria, Hematuria, Frequency Musculoskeletal: Reports: Back pain. Denies: Extremity Pain Skin: Denies: Rash, Wounds Neurological: Denies: Headache, Weakness, Numbness Physical Exam Vital Signs/Narrative: Vital Signs Temp Pulse Resp BP Pulse Ox 03/04/20 10:09 98.9 F 60 22 H 122/83 H 98 Inital Vital Signs reviewed: Yes General: Well nourished, Well developed, No Acute Distress Head: Normocephalic, Atraumatic Eyes: Perrl, EOMI ENT: Moist mucous membranes, No rhinorrhea Neck: Supple, Nontender Cardiovascular: Regular rate, Regular rhythm, No murmurs Respiratory: No distress, CTA bilaterally, Chest nontender Abdomen: Soft, Nontender, Nondistended, Normal bowel sounds : - - Patient has tenderness with palpation of the left testicle. No significant swelling present. Rest of exam normal. Back: Normal Inspection, - - Mild tenderness to palpation of the lower left back. No CVA tenderness. Extremities: Nontender, No edema Skin: Normal color, No rash Neurological: Alert, Oriented x3, Cranial nerves II-XII grossly intact, Normal Strength, Normal Sensation Psychological: Normal affect, Normal Mood Diagnostic/Tx/Re-eval - Medical Decision Making Patient presents to the ED for left testicular pain. Sounds like he potentially had a testicular torsion before in the past. Will obtain ultrasound to evaluate for this now. Patient's urinalysis did not show any acute abnormality. No red blood cells. Ultrasound was obtained which did not show any evidence of torsion. Patient is feeling better after treatment. He does have a hydrocele as well as varicoceles. We will have him follow-up with outpatient urology. Patient does feel comfortable this plan. If he develops any worsening symptoms he understands that he could still develop a torsion. If this develops he is to return to the emergency department. At this time will discharge home in stable condition. He understands and is agreeable this plan. ED Disposition - Plan for ED Patient: Disposition: Home or Assisted Living Diagnosis: Testicular pain, left, Hydrocele in adult, Varicocele Instructions: ED Hydrocele Type Not Specified, ED Testicular Pain [facility], ED Varicocele Referrals: Carolyn Patel NP-C [Primary Care Provider] - Gen Penny MD [STAFF PHYSICIAN] - 2 Days
[2020-03-04] MEDS: Ketorolac 30 MG/ML Syringe IV (10:46)
[2020-03-04 10:56] LABS: Mucous, Urine 0 SEEN /hpf (<or=2+); Red Blood Cells-Urine 0 SEEN /hpf (0-5); Squamous Epithelial Cells - UA 0 SEEN /hpf (0-5); White Blood Cells 0 SEEN /hpf (0-5)
[2020-03-04 11:08] LABS: Color, Urine Straw (Yellow); Glucose, Dipstick Normal (Normal); Ketone-Dipstick Negative (Negative); Leukocyte Esterase-Dipstick Negative /ul (Negative); Nitrite-Dipstick Negative (Negative); Occult Blood-Urine Negative /ul (Negative); Protein-Dipstick Negative (Negative); Urine Bilirubin Dipstick Negative (Negative); Urine Clarity Clear (Clear); Urine Urobilinogen Normal (Normal)
[2020-03-04 11:14] LABS: Bacteria RARE /hpf (None Seen)
[2020-03-04 12:45] VITALS: BP 114/69; RESP 18
== END 2020-03-04 12:46 | disposition home or self-care (01) ==
PROVIDERS: Emergency Provider Emergency Medicine; PCP Nurse Practitioner Family
DX: N43.3 Hydrocele, unspecified (principal); I86.1 Scrotal varices; I10 Essential (primary) hypertension; F17.200 Nicotine dependence, unspecified, uncomplicated
CPT/HCPCS: 76870; 81001; 93976; 96374; 99284; A4216

== ENCOUNTER 2020-03-09 14:29 | Emergency (ER) | payer BC, SELFPAY ==
[2020-03-09 14:30] VITALS: BP 150/99; PULSE 79; RESP 18; TEMP 36.2; O2SAT 97; BMI 33.4
--- NOTE | 2020-03-09 15:16 | ED.VIS.GEN ---
History of Present Illness Chief Complaint: Suicidal Informant: Patient, - - Police Narrative: Patient presents the emergency department with the police for evaluation of depression and suicidality. Dion is a 39-year-old male who states that this morning his served him with divorce papers. He states that he has a history of anxiety and depression and has done counseling in the past. Currently takes amitriptyline in addition to his hypertension medications. Per the pink slip filled up with the police he reportedly made comments about hanging he was located driving his vehicle where he told police he had gone down to the street [place] in order to find peace. There was a report given to the police that he had placed a cord around his neck. Patient's is asking how long this process evaluation will take as he would like to go to work in the morning. He denies any new medications. He denies any change in doses of medications. He denies any wounds to his body. He denies any alcohol or drug ingestion today. 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 Past Medical History - Allergies and Home Meds Allergies/Adverse Reactions: Allergies Tetanus Vaccines and Toxoid [Tetanus Vaccines & Toxoid] Allergy (Verified 03/09/20 14:30) Other COULD NOT MOVE ARM FOR 2 DAYS hydrocodone bitartrate [From Vicodin] Adverse Reaction (Verified 03/09/20 14:30) Nausea lorazepam [From Ativan] Adverse Reaction (Verified 03/09/20 14:30) Other MOOD CHANGES Primary Care Physician: Carolyn Patel NP-C [Primary Care Provider] - Smoking Status: Current every day smoker Review of Systems General: Denies: Chills, Fever, Sweats Eyes: Denies: Visual changes - bilaterally, Diplopia ENT: Denies: Rhinorrhea, Sore throat Cardiovascular: Denies: Chest pain, Palpitations Respiratory: Denies: Dyspnea, Cough, Dyspnea on exertion Gastrointestinal: Denies: Abdominal pain, Nausea, Vomiting, Diarrhea, Melena, Hematochezia Genitourinary: Denies: Dysuria, Hematuria, Frequency Musculoskeletal: Denies: Back pain, Extremity Pain Skin: Denies: Rash, Wounds Neurological: Denies: Headache, Weakness, Numbness Psych: Reports: Depression, Anxiety, Suicidal thoughts Physical Exam Vital Signs/Narrative: Vital Signs Temp Pulse Resp BP Pulse Ox 03/09/20 14:30 97.2 F L 79 18 150/99 H 97 General: Well nourished, Well developed, No Acute Distress Head: Normocephalic, Atraumatic Eyes: Perrl, EOMI ENT: Moist mucous membranes, No rhinorrhea Neck: Supple, Nontender Cardiovascular: Regular rate, Regular rhythm, No murmurs Respiratory: No distress, CTA bilaterally, Chest nontender Abdomen: Soft, Nontender, Nondistended, Normal bowel sounds Back: Nontender, Normal Inspection Extremities: Nontender, No edema Skin: Normal color, No rash Neurological: Alert, Oriented x3, Cranial nerves II-XII grossly intact, Normal Strength, Normal Sensation Psychological: Normal affect, Normal Mood, - - Patient is cooperative. He admits to feeling depressed but denies feeling suicidal at this point. He does demonstrate some forward thinking. He makes eye contact. Diagnostic/Tx/Re-eval Laboratory Last Values WBC 13.4 K/mm3 (4.4-11.0) H 03/09/20 15:10 RBC 5.89 M/mm3 (4.6-6.2) 03/09/20 15:10 Hgb 16.5 g/dL (13.0-16.5) 03/09/20 15:10 Hct 49.4 % (40-54) 03/09/20 15:10 MCV 83.9 fL (80-94) 03/09/20 15:10 MCH 28.0 pg (27.0-32.0) 03/09/20 15:10 MCHC 33.4 g/dL (32-36) 03/09/20 15:10 RDW Std Deviation 41.5 fl (35.1-43.9) 03/09/20 15:10 RDW Coeff of Radha 13.6 % (11.6-14.6) 03/09/20 15:10 Plt Count 321 K/mm3 (150-450) 03/09/20 15:10 MPV 10.5 fl (6.2-12.0) 03/09/20 15:10 Immature Gran % (Auto) 0.500 % (0.0-0.9) 03/09/20 15:10 Neut % (Auto) 77.7 % (47-70) H 03/09/20 15:10 Lymph % (Auto) 15.7 % (19-41) L 03/09/20 15:10 [place] % (Auto) 5.1 % (0-10) 03/09/20 15:10 Eos % (Auto) 0.8 % (0-5) 03/09/20 15:10 Baso % (Auto) 0.2 % (0-1) 03/09/20 15:10 Absolute Neuts (auto) 10.4 X10^3/uL (2.0-7.7) H 03/09/20 15:10 Absolute Lymphs (auto) 2.11 X10^3/uL (0.83-4.51) 03/09/20 15:10 Nucleated RBC % 0 % (0-5) 03/09/20 15:10 Sodium 138 mmol/L (136-145) 03/09/20 15:10 Potassium 3.6 mmol/L (3.5-5.1) 03/09/20 15:10 Chloride 107 mmol/L (98-107) 03/09/20 15:10 Carbon Dioxide 27.0 mmol/L (21.0-32.0) 03/09/20 15:10 Anion Gap 4 (5-15) L 03/09/20 15:10 BUN 11 mg/dL (7-18) 03/09/20 15:10 Creatinine 1.22 mg/dL (0.70-1.30) 03/09/20 15:10 Estim Creat Clear Calc 80.20 ml/min 03/09/20 15:10 Est GFR (MDRD) Af Amer 86 mL/min (>60) 03/09/20 15:10 Est GFR (MDRD) Non-Af 71 mL/min (>60) 03/09/20 15:10 BUN/Creatinine Ratio 9.0 RATIO (10-20) L 03/09/20 15:10 Glucose 104 mg/dL (74-106) 03/09/20 15:10 Calcium 9.1 mg/dL (8.5-10.1) 03/09/20 15:10 Total Bilirubin 0.50 mg/dL (0.20-1.00) 03/09/20 15:10 AST 12 U/L (15-37) L 03/09/20 15:10 ALT 31 U/L (16-61) 03/09/20 15:10 Alkaline Phosphatase 75 U/L (45-117) 03/09/20 15:10 Total Protein 7.7 g/dL (6.4-8.2) 03/09/20 15:10 Albumin 4.2 g/dL (3.2-5.0) 03/09/20 15:10 Globulin 3.5 g/dL (2.2-4.2) 03/09/20 15:10 Albumin/Globulin Ratio 1.2 RATIO (0.9-2.4) 03/09/20 15:10 TSH 1.53 uIU/mL (0.358-3.74) 03/09/20 15:10 Urine Opiates Screen NEGATIVE (< 300 ng/mL) 03/09/20 15:25 Urine Methadone Screen NEGATIVE (< 300 ng/mL) 03/09/20 15:25 Ur Barbiturates Screen NEGATIVE (< 200 ng/mL) 03/09/20 15:25 Ur Phencyclidine Scrn NEGATIVE (< 25 ng/mL) 03/09/20 15:25 Ur Amphetamines Screen NEGATIVE (<1000 ng/mL) 03/09/20 15:25 U Methamphetamin-MDMA NEGATIVE (< 500 ng/mL) 03/09/20 15:25 U Benzodiazepines Scrn NEGATIVE (< 200 ng/mL) 03/09/20 15:25 Urine Cocaine Screen NEGATIVE (< 300 ng/mL) 03/09/20 15:25 U Cannabinoids Screen POSITIVE (< 50 ng/mL) H 03/09/20 15:25 Ur Drug Screen Comment 03/09/20 15:25 Ethyl Alcohol < 3.0 mg/dL 03/09/20 15:10 - Medical Decision Making Patient was medically cleared for psychiatric evaluation. Crisis was called and interviewed the patient. Patient is currently not suicidal. Counseling center is going to safety plan him and arrange follow-up. Return if worsening or concerns ED Disposition - Plan for ED Patient: Disposition: Home or Assisted Living Diagnosis: Major depression Instructions: ED Depression, CONTRACT, No Harm Referrals: Counseling,Center [GROUP OF PHYSICIANS] - As soon as possible
[2020-03-09 15:26] LABS: Absolute Lymphocyte Count 2.11 X10^3/uL (0.83-4.51); Absolute Neutrophil Count 10.4 X10^3/uL (2.0-7.7); Basophil# 0.03 X10^3/uL; Basophil% 0.2 % (0-1); Eosinophil# 0.11 X10^3/uL; Eosinophils% 0.8 % (0-5); Hematocrit 49.4 % (40-54); Hemoglobin 16.5 g/dL (13.0-16.5); Lymphocyte # 2.11 X10^3/ul (4.0); Lymphocyte % 15.7 % (19-41); Mean Corp Hgb Conc 33.4 g/dL (32-36); Mean Corpuscular Volume 83.9 fL (80-94); Mean Platelet Vol. 10.5 fl (6.2-12.0); Monocyte# 0.68 X10^3/uL; Monocyte% 5.1 % (0-10); NRBC Flagged by Analyzer 0 % (0-5); Neutrophil # 10.43 X10^3/uL (2.7-7.7); Neutrophil % 77.7 % (47-70); Platelet Count 321 K/mm3 (150-450); RBC Distribution Width CV 13.6 % (11.6-14.6); RBC Distribution Width SD 41.5 fl (35.1-43.9); Red Blood Count 5.89 M/mm3 (4.6-6.2); White Blood Count 13.4 K/mm3 (4.4-11.0)
[2020-03-09 15:37] LABS: Alcohol, Blood (Medical)-Serum < 3.0 mg/dL
[2020-03-09 15:44] VITALS: RESP 15
[2020-03-09 15:49] LABS: ALB/GLOB Ratio 1.2 RATIO (0.9-2.4); AST(SGOT) 12 U/L (15-37); Alanine Aminotransfer ALT/SGPT 31 U/L (16-61); Albumin, Serum 4.2 g/dL (3.2-5.0); Alkaline Phosphatase 75 U/L (45-117); Anion Gap 4 (5-15); BUN 11 mg/dL (7-18); Calcium,Total 9.1 mg/dL (8.5-10.1); Chloride 107 mmol/L (98-107); Creatinine, Serum 1.22 mg/dL (0.70-1.30); EST Glomerular Filtration Rate 71 mL/min (>60); Est Glom Filt Rate - Afr Amer 86 mL/min (>60); Globulin 3.5 g/dL (2.2-4.2); Glucose 104 mg/dL (74-106); Potassium 3.6 mmol/L (3.5-5.1); Protein, Total 7.7 g/dL (6.4-8.2); Sodium Level 138 mmol/L (136-145); Thyroid Stim Hormone (TSH) 1.53 uIU/mL (0.358-3.74)
[2020-03-09 15:50] LABS: Amphetamine Urine VISTA NEGATIVE (<1000 ng/mL); Barbiturate Urine VISTA NEGATIVE (< 200 ng/mL); Benzodiazepine Urine VISTA NEGATIVE (< 200 ng/mL); Cocaine Urine VISTA NEGATIVE (< 300 ng/mL); Ecstacy Urine VISTA NEGATIVE (< 500 ng/mL); Methadone Urine VISTA NEGATIVE (< 300 ng/mL); PCP Urine VISTA NEGATIVE (< 25 ng/mL); THC Urine VISTA POSITIVE (< 50 ng/mL); Vista UDS pH Range 5
--- NOTE | 2020-03-09 16:01 | ED.RN ---
CONTACTED [facility]. REQUEST THAT CHART BE FAXED AND WORKER WILL CALL AFTER REVIEWING IT
--- NOTE | 2020-03-09 16:30 | ED.RN ---
PT DOES NOT WANT MOTHER TO KNOW HE IS HERE OR SPEAK WITH HIM .
[2020-03-09 16:54] VITALS: RESP 15
--- NOTE | 2020-03-09 17:08 | ED.RN ---
ILYA GARRIDO CALLED FROM THE [facility]SELING [facility].
[2020-03-09 18:23] VITALS: BP 148/83; PULSE 66; RESP 15
== END 2020-03-09 18:24 | disposition home or self-care (01) ==
PROVIDERS: Emergency Provider Emergency Medicine; PCP Nurse Practitioner Family
DX: F32.9 Major depressive disorder, single episode, unspecified (principal); F41.9 Anxiety disorder, unspecified; I10 Essential (primary) hypertension; F17.200 Nicotine dependence, unspecified, uncomplicated
CPT/HCPCS: 80053; 80307; 80320; 84443; 85025; 99283; G0480

== ENCOUNTER 2020-11-26 06:00 | Emergency (ER) | payer BC, SELFPAY ==
[2020-11-26 06:01] VITALS: BP 151/98; PULSE 55; RESP 16; TEMP 35.8; O2SAT 98; BMI 36.2
--- NOTE | 2020-11-26 06:04 | EKG12_ITS ---
Test Reason : TRAUMA Blood Pressure : / mmHG Vent. Rate : 052 BPM Atrial Rate : 052 BPM P-R Int : 150 ms QRS Dur : 100 ms QT Int : 436 ms P-R-T Axes : 040 067 092 degrees QTc Int : 405 ms Sinus bradycardia Otherwise normal ECG Confirmed by LYNETTE ALVARADO, GEORGES ([id number]), scientific editor KUMAR LOZANO ([id number]) on 11/28/2020 11:38:51 A M Referred By: RUSTAM Confirmed By:XIAO OJEDA MD
--- NOTE | 2020-11-26 06:05 | CT_ITS ---
STUDY: CT ABDOMEN AND PELVIS WITH CONTRAST REASON FOR EXAM: Male, 39 years old. Pain after falling down stairs. TECHNIQUE: Transaxial images were obtained from the dome of the diaphragm to the symphysis pubis without oral contrast. IV 100mL Isovue-[id number] was administered. Sagittal and coronal images were reconstructed. Individualized dose optimization techniques were used for this CT. COMPARISON: None. FINDINGS: Partially visualized lower chest: Lung bases unremarkable. Liver: Status post cholecystectomy. Gallbladder and biliary tree: No visible gallstones. No pericholecystic inflammation. No biliary ductal dilation. Pancreas: No pancreatic lesions or inflammation. Spleen: Normal size, no splenic lesions. Adrenal glands: No concerning masses. Kidneys and ureters: No hydronephrosis or renal stones. No concerning masses. No ureteral dilation. Bowel: Status post appendectomy. No obstruction or inflammation of the bowel. Urinary bladder: No stones or wall thickening. Reproductive:Normal size prostate. Vascular: No abdominal aortic aneurysm. Retroperitoneal and peritoneal spaces: No ascites or free air. No retroperitoneal lesions. Linear increased density structures adjacent to the GE junction likely sutures from previous hiatal hernia repair. Osseous: No acute osseous abnormality. Abdominal and pelvic wall: No concerning findings. Chronic metallic BB in the left lower posterior chest wall. CT/Abdomen/Pelvis WITH Contrast IMPRESSION: No acute findings. No evidence of injury to the abdomen or pelvis. Electronically Signed: Graham Michel MD at 7:00 EDT Tel , Service support ,
--- NOTE | 2020-11-26 06:05 | RAD_ITS ---
STUDY: X-RAY CHEST REASON FOR EXAM: Male, 39 years old. Right-sided pain after falling down a flight of stairs. TECHNIQUE: AP supine COMPARISON: 01/13/2019 CXR FINDINGS: No apparent pneumothorax, pneumonia, pleural effusion, or edema. Cardiac silhouette, jessica and mediastinal contours are within normal limits. No acute osseous abnormality. No evidence of free air under the diaphragm. Metallic BB left lower posterior chest unchanged. RAD/Chest 1 View (Portable) IMPRESSION: Negative chest radiograph. Electronically Signed: Graham Michel MD at 6:39 EDT Tel , Service support ,
--- NOTE | 2020-11-26 06:06 | CT_ITS ---
STUDY: CT BRAIN WITHOUT CONTRAST REASON FOR EXAM: Male, 39 years old. Loss of consciousness after falling down a flight of stairs. TECHNIQUE: Transaxial CT imaging of the brain was performed without administration of intravenous contrast material. Individualized dose optimization techniques were used for this CT. COMPARISON: CT brain 01/02/2020. FINDINGS: No evidence of intracranial hemorrhage, mass, infarct or hydrocephalus. No skull fracture. Visualized paranasal sinuses and mastoid air cells patent. Visualized extracranial soft tissues unremarkable. CT/Brain/Head without Contrast IMPRESSION: No evidence of intracranial injury or skull fracture. Electronically Signed: Graham Michel MD at 6:51 EDT Tel , Service support ,
--- NOTE | 2020-11-26 06:06 | CT_ITS ---
STUDY: CT CERVICAL SPINE WITHOUT CONTRAST REASON FOR EXAM: Male, 39 years old. Loss of consciousness after falling down a flight of stairs. TECHNIQUE: High resolution transaxial imaging was performed without contrast material. Sagittal and coronal images were reconstructed. Individualized dose optimization techniques were used for this CT. COMPARISON: Cervical spine radiographs 09/06/2019. FINDINGS: No fracture or dislocation of the cervical spine. Alignment anatomic. No significant spinal canal or foraminal narrowing. No acute findings in the paraspinal soft tissues. No prevertebral hematoma. CT/Spine Cervical without Contras IMPRESSION: No fracture or dislocation of the cervical spine. Electronically Signed: Graham Michel MD at 6:53 EDT Tel , Service support ,
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
[2020-11-26 06:14] LABS: Absolute Lymphocyte Count 3.24 X10^3/uL (0.83-4.51); Absolute Neutrophil Count 10.2 X10^3/uL (2.0-7.7); Basophil# 0.05 X10^3/uL; Basophil% 0.3 % (0-1); Eosinophil# 0.28 X10^3/uL; Eosinophils% 1.9 % (0-5); Hematocrit 46.2 % (40-54); Hemoglobin 15.4 g/dL (13.0-16.5); Lymphocyte # 3.24 X10^3/ul (0.83-4.51); Mean Corp Hgb Conc 33.3 g/dL (32-36); Mean Corpuscular Hgb 28.1 pg (27.0-32.0); Mean Corpuscular Volume 84.3 fL (80-94); Mean Platelet Vol. 10.7 fl (6.2-12.0); Monocyte# 0.94 X10^3/uL; Monocyte% 6.4 % (0-10); NRBC Flagged by Analyzer 0 % (0-5); Neutrophil # 10.15 X10^3/uL (2.7-7.7); Neutrophil % 69.1 % (47-70); Platelet Count 297 K/mm3 (150-450); RBC Distribution Width CV 13.5 % (11.6-14.6); RBC Distribution Width SD 41.7 fl (35.1-43.9); Red Blood Count 5.48 M/mm3 (4.6-6.2); White Blood Count 14.7 K/mm3 (4.4-11.0)
[2020-11-26 06:50] LABS: AST(SGOT) 13 U/L (15-37); Alanine Aminotransfer ALT/SGPT 26 U/L (16-61); Albumin, Serum 3.6 g/dL (3.2-5.0); Alkaline Phosphatase 69 U/L (45-117); Anion Gap 5 (5-15); BUN 13 mg/dL (7-18); BUN/Creat Ratio 11.1 RATIO (10-20); Bilirubin, Direct 0.15 mg/dL (0.00-0.30); Calcium,Total 8.5 mg/dL (8.5-10.1); Chloride 110 mmol/L (98-107); Creatinine, Serum 1.17 mg/dL (0.70-1.30); EST Glomerular Filtration Rate 74 mL/min (>60); Est Glom Filt Rate - Afr Amer 90 mL/min (>60); Estimated Creatinine Clearance 83.63 ml/min; Globulin 2.9 g/dL (2.2-4.2); Glucose 98 mg/dL (74-106); Potassium 3.4 mmol/L (3.5-5.1); Protein, Total 6.5 g/dL (6.4-8.2); Sodium Level 141 mmol/L (136-145)
[2020-11-26 06:57] VITALS: BP 154/90; PULSE 57; RESP 12; O2SAT 99
--- NOTE | 2020-11-26 06:59 | ED.RN ---
called pt's , Lily, per patient request. states she will not be able to get patient from ED and that they are and she isn't sure why he wanted her called.
[2020-11-26] MEDS: morphine 8 MG/ML Syringe IV (07:05)
[2020-11-26] MEDS: Ondansetron 4 MG/2 ML Vial IV (07:05)
[2020-11-26] MEDS: Ketorolac 15 MG/ML Vial IV (07:05)
[2020-11-26 07:32] VITALS: BP 170/85; PULSE 54; RESP 16; O2SAT 98
--- NOTE | 2020-11-26 07:45 | ED.RN ---
PT REPORTS CALLING MOM FOR A RIDE HOME, IV D/C AND COVERED WITH 2X2 GAUZE AND PAPER TAPE. AWAITING RIDE HOME.
== END 2020-11-26 08:42 | disposition home or self-care (01) ==
PROVIDERS: Emergency Medicine; Emergency Provider Emergency Medicine; PCP Nurse Practitioner Family
DX: S06.0X1A Concussion with loss of consciousness of 30 minutes or less, initial encounter (principal); S13.4XXA Sprain of ligaments of cervical spine, initial encounter; S20.223A Contusion of bilateral back wall of thorax, initial encounter; S30.1XXA Contusion of abdominal wall, initial encounter; W10.9XXA Fall (on) (from) unspecified stairs and steps, initial encounter; Y93.9 Activity, unspecified; Y92.008 Other place in unspecified non-institutional (private) residence as the place of occurrence of the external cause; Y99.9 Unspecified external cause status; I10 Essential (primary) hypertension; F17.200 Nicotine dependence, unspecified, uncomplicated; E66.9 Obesity, unspecified; Z68.36 Body mass index [BMI] 36.0-36.9, adult; Z79.899 Other long term (current) drug therapy
CPT/HCPCS: 70450; 71045; 72125; 74177; 80048; 80076; 85025; 93005; 96374; 96375; 99285; Q9967; A4216; J2405

== ENCOUNTER 2020-12-03 17:26 | Emergency (ER) | payer BC, SELFPAY ==
[2020-12-03 17:26] VITALS: BP 143/93; PULSE 80; RESP 15; TEMP 36.2; O2SAT 98; BMI 32.5
--- NOTE | 2020-12-03 17:49 | EKG12_ITS ---
Test Reason : CP Blood Pressure : / mmHG Vent. Rate : 068 BPM Atrial Rate : 068 BPM P-R Int : 138 ms QRS Dur : 096 ms QT Int : 394 ms P-R-T Axes : 035 059 068 degrees QTc Int : 418 ms Normal sinus rhythm Normal ECG Confirmed by CAPO ALVARADO, RANDA ([id number]), online editor KUMAR LOZANO ([id number]) on 12/04/2020 11:32:24 AM Referred By: JYOTI/GRETCHEN Confirmed By:RANDA SCANLON MD
--- NOTE | 2020-12-03 17:50 | ED.VIS.CHEST ---
HPI History of Present Illness Chief Complaint: Chest Pain Onset/Context/Timing Onset: Today and Hours (-07/12) Activity at onset: sudden Timing: Continuous Quality: Positive for Sharp Location: Substernal, Right Parasternal, Left Parasternal, Right Chest and Left Chest Worsened By: Breathing Relieved By: Nothing Associated Symptoms: Positive for Dyspnea, Lightheadedness and Palpitations; Negative for Nausea, Vomiting, Diaphoresis, Cough, Fever and Acid Reflux Narrative Narrative: Patient presents with chest pain that began approxione and 1/2 hours ago. Patient states he woke up at that time and noted pain in his chest. Patient states the pain is diffuse across his chest. Patient states it is worse with deep breathing. Patient states nothing makes it better. Patient states he feels short of breath. Patient also admits to some lightheadedness and palpitations. Patient denies any nausea or vomiting. Patient denies any diaphoresis. Patient denies any fevers or chills. CVD Risk Factors: Positive for Hypertension and Smoking; Negative for Diabetes, Hypercholesterolemia and Family History 1' </=55 PE Risk Factors: Negative for Recent Travel/Surgery, Recent Immobilization, Prior DVT or PE, Cancer and OCP + Smoking + >/=35 PFSH [facility] Medical History (Updated 12/03/20 @ 20:[address] Michael Pinto, DO) Hypertension Home Medications amlodipine 10 mg PO DAILY 05/21/15 [History Last Taken 09/06/19] clonidine HCl 0.2 mg PO BID 05/21/19 [History Last Taken 09/06/19] amitriptyline 10 mg PO DAILY 09/06/19 [History Last Taken 09/06/19 16:38] hydrochlorothiazide 25 mg PO DAILY 01/02/20 [History Last Taken Unknown] hydroxyzine pamoate 25 mg PO Q6H PRN 11/26/20 [History Last Taken Unknown] sertraline 50 mg PO QHS 11/26/20 [History Last Taken Unknown] Allergy/AdvReac Type Severity Reaction Status Date / Time Tetanus Vaccines and Toxoid Allergy Other Verified 12/03/20 17:28 [Tetanus Vaccines & Toxoid] hydrocodone bitartrate AdvReac Nausea Verified 12/03/20 17:28 [From Vicodin] lorazepam [From Ativan] AdvReac Other Verified 12/03/20 17:28 Family History Grandfather Myocardial infarction Mother Arthritis Sister Seizures Surgical History History of arthroscopy of right shoulder History of cardiac catheterization History of cholecystectomy S/P right knee arthroscopy Social History household members: spouse and children housing: house Smoking Status: Current every day smoker tobacco type: cigarettes alcohol intake: current substance use type: does not use ROS ROS ED Constitutional Constitutional ED: Denies chills or fever(s) Eyes Eyes: Denies blurry vision or change in vision ENT ENT ED: Denies rhinorrhea or sore throat Cardiovascular Cardiovascular: Reports chest pain and palpitations Respiratory/Chest Respiratory/Chest: Reports dyspnea; Denies cough Gastrointestinal Gastrointestinal: Reports nausea; Denies abdominal pain or vomiting Genitourinary Genitourinary ED: Denies dysuria or hematuria Musculoskeletal Musculoskeletal: Reports back pain; Denies neck pain Integumentary Denies abscess or rash Neurologic Neurologic: Reports headache(s); Denies weakness Allergic/Immunologic Allergic/Immunologic ED: Denies mouth swelling or urticaria EXAM Physical Exam Const Vital Signs: 12/03/20 17:26 12/03/20 17:59 12/03/20 18:11 Temperature 97.2 F L Temperature Source Temporal Pulse Rate 80 67 Respiratory Rate 15 Respiratory Effort Normal Non-Labored Blood Pressure 143/93 H 129/85 H Blood Pressure Mean 109 Pulse Ox 98 96 Oxygen Delivery Method Room Air Room Air 12/03/20 19:26 Temperature Temperature Source Pulse Rate 61 Respiratory Rate 19 H Respiratory Effort Blood Pressure 129/96 H Blood Pressure Mean 107 Pulse Ox 98 Oxygen Delivery Method Room Air Positive well nourished and well developed General Appearance ED: well developed HEENT normocephalic and atraumatic Eyes PERRL and EOMs intact bilaterally Neck supple and no JVD Chest Wall palpation of chest normal Resp normal respiratory effort and clear to auscultation bilaterally Effort and Inspection: Negative for respiratory distress Cardio regular rate, regular rhythm and no murmurs GI normal to inspection, nondistended, normoactive bowel sounds, soft to palpation, non-tender and non-distended Extremity normal to inspection General Extremety ED: Negative for edema or tenderness General Extremity: Negative for edema Neuro oriented x3, CN's II-XII intact bilaterally and no sensory deficits noted Sensorium / Orientation: awake and alert Motor Exam: strength 5/5 throughout Psych mental status grossly normal Heart Score History: Moderately Suspicious ECG: Normal Age: </= 45 years Risk Factors: 1 or 2 Risk Factors Troponin: </= Normal Limit Score: 2 MDM MDM MDM Narrative Medical decision making narrative: EKG was obtained. On my interpretation, it showed a normal sinus rhythm with a rate of 68. MN interval, QRS interval, and QTc intervals were all normal. [place] was normal. There are no acute ST or T wave changes. Portable 1 view chest x-ray was obtained. On my interpretation, lung cisneros are clear. There is normal cardiac silhouette. Bony thorax is normal. There is no acute process noted. Radiologist also interpreted the x-ray and agrees. CBC, basic metabolic profile, troponin were obtained and were all within normal limits with the exception of a mild hypokalemia 3.0. A delta troponin was obtained and was also within normal limits. Patient was given a dose of oral potassium. Patient was advised of his findings. Patient has a HEART score of 2. Patient was advised that this is low risk for acute cardiac event. Patient was instructed to follow-up with his primary care physician in 5 to 7 days for further evaluation. Patient understood and was agreeable with the plan. All questions were answered. Lab Data Attestation: I reviewed the patient's lab results. Labs: Laboratory Results - last 24 hr 12/03/20 12/03/20 12/03/20 17:50 17:50 19:47 WBC 11.8 H RBC 5.69 Hgb 16.1 Hct 47.4 MCV 83.3 MCH 28.3 MCHC 34.0 RDW Std Deviation 40.8 RDW Coeff of Radha 13.4 Plt Count 310 MPV 10.6 Immature Gran % (Auto) 0.400 Neut % (Auto) 65.3 Lymph % (Auto) 25.1 [place] % (Auto) 6.3 Eos % (Auto) 2.6 Baso % (Auto) 0.3 Absolute Neuts (auto) 7.7 Absolute Lymphs (auto) 2.96 Nucleated RBC % 0 Sodium 136 Potassium 3.0 L Chloride 102 Carbon Dioxide 29.0 Anion Gap 5 BUN 17 Creatinine 1.34 H Estim Creat Clear Calc 73.02 Est GFR (MDRD) Af Amer 77 Est GFR (MDRD) Non-Af 63 BUN/Creatinine Ratio 12.7 Glucose 111 H Calcium 9.0 Troponin I < 0.015 < 0.015 Radiography Chest X-Ray - ED: 1 View, Read by ED Physician, Read by Radiologist and Normal Diagnostic Testing: Radiology Impression Chest X-Ray 12/03/20 18:01 IMPRESSION: Normal x-ray examination of the chest. Electronically Signed: Sincere Drummond DO at 20:19 EDT Tel [phone], Service support , EKG Initial EKG: Attestation: I personally reviewed and interpreted this EKG as follows: Interpretation: Sinus Rhythm (68) and No Acute Injury Pattern Prior EKG tracings: not available for review Discharge Plan Triage Chief Complaint: Chest Pain ED Provider: Michael Pinto Dx/Rx/DC Orders Clinical Impression: Chest pain of uncertain etiology Instructions: ED Chest Pain, Uncertain Cause Prescriptions: No Action amlodipine 10 MG tablet 10 mg PO DAILY RF: 0 clonidine HCl 0.1 MG tablet 0.2 mg PO BID RF: 0 amitriptyline 10 MG tablet 10 mg PO DAILY RF: 0 hydrochlorothiazide 25 MG tablet 25 mg PO DAILY RF: 0 sertraline 50 mg Tablet 50 mg PO QHS RF: 0 hydroxyzine pamoate 25 mg Capsule 25 mg PO Q6H PRN (Reason: Insomnia) RF: 0 Primary Care Provider: Carolyn Patel NP Referrals: Carolyn Patel NP, WHIRLEY OPERATOR-C [Primary Care Provider] - 5-7 Days Disposition Disposition: Home, self care
[2020-12-03 17:59] VITALS: O2SAT 96
--- NOTE | 2020-12-03 18:01 | RAD_ITS ---
STUDY: X-RAY CHEST REASON FOR EXAM: Male, 39 years old. Chest pain TECHNIQUE: Frontal view COMPARISON: 11/26/2020 FINDINGS: The lungs are clear and expanded. There is no demonstrated pleural abnormality. Normal size heart. Normal mediastinum and jessica. Normal visualized pulmonary arteries. Normal visualized aortic arch and descending thoracic aorta. Normal visualized thoracic spine. Normal visualized ribs, clavicles, and shoulders. There is no demonstrated abnormality of the visualized soft tissue structures of the upper abdomen. RAD/Chest 1 View (Portable) IMPRESSION: Normal x-ray examination of the chest. Electronically Signed: Sincere Drummond DO at 20:19 EDT Tel [phone], Service support ,
[2020-12-03 18:04] LABS: Absolute Lymphocyte Count 2.96 X10^3/uL (0.83-4.51); Absolute Neutrophil Count 7.7 X10^3/uL (2.0-7.7); Basophil# 0.04 X10^3/uL; Basophil% 0.3 % (0-1); Eosinophil# 0.31 X10^3/uL; Eosinophils% 2.6 % (0-5); Hematocrit 47.4 % (40-54); Hemoglobin 16.1 g/dL (13.0-16.5); Lymphocyte # 2.96 X10^3/ul (0.83-4.51); Lymphocyte % 25.1 % (19-41); Mean Corpuscular Hgb 28.3 pg (27.0-32.0); Mean Corpuscular Volume 83.3 fL (80-94); Mean Platelet Vol. 10.6 fl (6.2-12.0); Monocyte# 0.74 X10^3/uL; Monocyte% 6.3 % (0-10); NRBC Flagged by Analyzer 0 % (0-5); Neutrophil # 7.67 X10^3/uL (2.7-7.7); Neutrophil % 65.3 % (47-70); Platelet Count 310 K/mm3 (150-450); RBC Distribution Width CV 13.4 % (11.6-14.6); RBC Distribution Width SD 40.8 fl (35.1-43.9); Red Blood Count 5.69 M/mm3 (4.6-6.2); White Blood Count 11.8 K/mm3 (4.4-11.0)
[2020-12-03] MEDS: Aspirin 81 MG TAB.CHEW 324 MG PO (18:10)
[2020-12-03 18:11] VITALS: BP 129/85; PULSE 67
[2020-12-03] MEDS: Nitroglycerin SL (ED/IMG/CATH) 0.4 MG TABLET SL (18:11)
[2020-12-03 18:21] LABS: Anion Gap 5 (5-15); BUN 17 mg/dL (7-18); BUN/Creat Ratio 12.7 RATIO (10-20); Chloride 102 mmol/L (98-107); Creatinine, Serum 1.34 mg/dL (0.70-1.30); EST Glomerular Filtration Rate 63 mL/min (>60); Est Glom Filt Rate - Afr Amer 77 mL/min (>60); Estimated Creatinine Clearance 73.02 ml/min; Glucose 111 mg/dL (74-106); Sodium Level 136 mmol/L (136-145)
[2020-12-03] MEDS: Potassium Chloride Oral Tablet 20 MEQ 40 MEQ PO (18:28)
--- NOTE | 2020-12-03 18:34 | ED.RN ---
rn at bedside to administer next dose of SL nitro, pt refuses d/t headache. rn will continue to monitor.
[2020-12-03 19:26] VITALS: BP 129/96; PULSE 61; RESP 19; O2SAT 98
[2020-12-03 20:56] VITALS: BP 127/76; PULSE 61; RESP 14; O2SAT 98
== END 2020-12-03 20:57 | disposition home or self-care (01) ==
PROVIDERS: Emergency Provider Emergency Medicine; PCP Nurse Practitioner Family
DX: R07.9 Chest pain, unspecified (principal); E87.6 Hypokalemia; I10 Essential (primary) hypertension; F17.210 Nicotine dependence, cigarettes, uncomplicated; Z79.899 Other long term (current) drug therapy
CPT/HCPCS: 71045; 80048; 84484; 85025; 93005; 99284; A4216

== ENCOUNTER 2021-01-20 10:44 | Emergency (ER) | payer SELFPAY ==
[2021-01-20 10:46] VITALS: BP 144/93; PULSE 75; RESP 18; TEMP 36.6; O2SAT 96; BMI 31.8
--- NOTE | 2021-01-20 10:57 | CT_ITS ---
STUDY: CT BRAIN WITHOUT CONTRAST REASON FOR EXAM: Male, 40 years old. Seizure RADIATION DOSAGE (If Supplied By Facility): CTDIvol = ( 44.99 ) mGy, DLP = ( 745.49 ) mGycm TECHNIQUE: Transaxial CT imaging of the brain was performed without administration of intravenous contrast material. Individualized dose optimization techniques were used for this CT. COMPARISON: Comparison is made with prior study 11/26/2020. FINDINGS: Normal soft tissue structures. Normal calvarium. Normal size ventricles and extra-axial spaces for the patient''s age. Normal white matter tracts of the cerebral hemispheres. Normal basal ganglia and thalami. Normal brainstem. Normal cerebellum. There is no intracranial hemorrhage. There are no findings of an acute ischemic infarction. Normal visualized paranasal sinuses. CT/Brain/Head without Contrast IMPRESSION: Normal unenhanced CT scan of the brain. Electronically Signed: Marin Recio MD at 12:14 EDT , Service support ,
--- NOTE | 2021-01-20 10:57 | EKG12_ITS ---
Test Reason : SEIZURE Blood Pressure : / mmHG Vent. Rate : 063 BPM Atrial Rate : 063 BPM P-R Int : 144 ms QRS Dur : 098 ms QT Int : 408 ms P-R-T Axes : 031 064 078 degrees QTc Int : 417 ms Normal sinus rhythm with sinus arrhythmia Normal ECG Confirmed by NAZARIO YOUNG MD ([id number]), assignment desk editor KUMAR LOZANO ([id number]) on 01/21/2021 12:45:06 PM Referred By: BOY
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
[2021-01-20 11:24] LABS: Absolute Lymphocyte Count 2.05 X10^3/uL (0.83-4.51); Absolute Neutrophil Count 7.6 X10^3/uL (2.0-7.7); Basophil# 0.04 X10^3/uL; Basophil% 0.4 % (0-1); Eosinophil# 0.12 X10^3/uL; Eosinophils% 1.1 % (0-5); Hematocrit 45.5 % (40-54); Hemoglobin 15.3 g/dL (13.0-16.5); Lymphocyte # 2.05 X10^3/ul (0.83-4.51); Lymphocyte % 19.6 % (19-41); Mean Corp Hgb Conc 33.6 g/dL (32-36); Mean Corpuscular Hgb 28.3 pg (27.0-32.0); Mean Corpuscular Volume 84.1 fL (80-94); Mean Platelet Vol. 10.6 fl (6.2-12.0); Monocyte# 0.63 X10^3/uL; NRBC Flagged by Analyzer 0 % (0-5); Neutrophil # 7.55 X10^3/uL (2.7-7.7); Neutrophil % 72.3 % (47-70); Platelet Count 311 K/mm3 (150-450); RBC Distribution Width CV 13.5 % (11.6-14.6); RBC Distribution Width SD 41.6 fl (35.1-43.9); Red Blood Count 5.41 M/mm3 (4.6-6.2); White Blood Count 10.5 K/mm3 (4.4-11.0)
[2021-01-20 11:35] LABS: Anion Gap 4 (5-15); BUN 9 mg/dL (7-18); BUN/Creat Ratio 6.9 RATIO (10-20); Calcium,Total 8.9 mg/dL (8.5-10.1); Chloride 105 mmol/L (98-107); Creatinine, Serum 1.31 mg/dL (0.70-1.30); EST Glomerular Filtration Rate 65 mL/min (>60); Est Glom Filt Rate - Afr Amer 79 mL/min (>60); Estimated Creatinine Clearance 73.97 ml/min; Glucose 88 mg/dL (74-106); Potassium 3.5 mmol/L (3.5-5.1); Sodium Level 138 mmol/L (136-145)
[2021-01-20 11:44] LABS: Lactic Acid 0.7 mmol/L (0.4-1.9)
[2021-01-20] MEDS: Ketorolac 15 MG/ML Vial IV (11:57)
[2021-01-20] MEDS: Acetaminophen 500 MG Tablet 1000 MG PO (11:58)
[2021-01-20] MEDS: levETIRAcetam 1,000 MG Tablet 1000 MG PO (12:10)
[2021-01-20 12:50] VITALS: BP 139/91; O2SAT 97
[2021-01-20 13:14] VITALS: BP 141/93; O2SAT 93
== END 2021-01-20 13:26 | disposition home or self-care (01) ==
PROVIDERS: Emergency Provider Emergency Medicine; PCP Nurse Practitioner Family
DX: R56.9 Unspecified convulsions (principal); F17.210 Nicotine dependence, cigarettes, uncomplicated
CPT/HCPCS: 70450; 80048; 83605; 85025; 93005; 96374; 99285; A4216

== ENCOUNTER 2025-05-23 11:38 | Emergency (ER) | payer SELFPAY ==
[2025-05-23 11:38] VITALS: BP 153/104
[2025-05-23 11:39] VITALS: PULSE 88; RESP 20; TEMP 36.6; O2SAT 97; BMI 34.7
--- NOTE | 2025-05-23 12:06 | EKG12_ITS ---
Test Reason : CP Blood Pressure : */* mmHG Vent. Rate : 75 BPM Atrial Rate : 75 BPM P-R Int : 134 ms QRS Dur : 90 ms QT Int : 384 ms P-R-T Axes : 29 56 85 degrees QTcB Int : 428 ms Normal sinus rhythm Normal ECG Confirmed by LYNETTE ALVARADO, GEORGES ([id number]), makeup editor BROWN LEONG ([id number]) on 05/27/2025 8:30:03 AM Referred By: Confirmed By: GEORGES OJEDA MD
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
--- NOTE | 2025-05-23 12:24 | RAD_ITS ---
PROCEDURE: CHEST PA AND LATERAL 05/23/2025 REASON FOR EXAM: CHEST PAIN TECHNIQUE: Procedure Code: RADCXR Modality: DX Procedure: CHEST PA AND LATERAL COMPARISON: None FINDINGS: Hardware: EKG electrodes are seen. Heart: The heart size is normal. Mediastinum: The mediastinal contour is unremarkable. Lungs: Scattered calcified granulomas. Lungs are clear. Bones: The bones are unremarkable. RAD/Chest PA and Lateral IMPRESSION: No acute abnormality is seen. Reading Location: [place] [id number]
[2025-05-23 12:26] LABS: Hematocrit 50.0 % (40-54); Hemoglobin 16.6 g/dL (13.0-16.5); Immature Granulocytes Count 0.060 X10^3/uL (0.0-0.0); Mean Corp Hgb Conc 33.2 g/dL (32-36); Mean Corpuscular Volume 84.0 fL (80-94); Mean Platelet Vol. 10.8 fl (6.2-12.0); NRBC Flagged by Analyzer 0 % (0-5); Platelet Count 372 K/mm3 (150-450); RBC Distribution Width CV 13.2 % (11.6-14.6); RBC Distribution Width SD 40.6 fl (35.1-43.9); Red Blood Count 5.95 M/mm3 (4.6-6.2); White Blood Count 13.5 K/mm3 (4.4-11.0)
[2025-05-23 12:38] VITALS: BP 135/99; PULSE 71; RESP 17; TEMP 37.1; O2SAT 94
[2025-05-23 13:00] VITALS: BP 132/106; PULSE 75; RESP 13; TEMP 37.1; O2SAT 98
[2025-05-23 13:02] LABS: Anion Gap 12 (5-15); BUN 11 mg/dL (4-19); BUN/Creat Ratio 10.3 RATIO (10-20); Calcium,Total 9.7 mg/dL (7.6-11.0); Carbon Dioxide 24.2 mmol/L (21.0-32.0); Chloride 104 mmol/L (98-108); Estimated Creatinine Clearance 105.91 ml/min (50-250); Glucose 97 mg/dL (70-99); Potassium 3.5 mmol/L (3.3-5.1); Troponin T High Sensitivity 7 ng/L (<=22)
[2025-05-23 14:00] VITALS: BP 140/97; PULSE 63; O2SAT 90
[2025-05-23 14:31] LABS: Troponin T High Sens 2 HR < 6 ng/L (<=22)
[2025-05-23 14:54] VITALS: BP 138/97; PULSE 71; RESP 24; TEMP 37.1; O2SAT 99
== END 2025-05-23 15:21 | disposition home or self-care (01) ==
PROVIDERS: Emergency Provider Surgery; PCP Nurse Practitioner Family; Visit Provider Surgery
DX: R07.9 Chest pain, unspecified (principal); F17.210 Nicotine dependence, cigarettes, uncomplicated; I10 Essential (primary) hypertension; Z79.899 Other long term (current) drug therapy
CPT/HCPCS: 71046; 80048; 84484; 85025; 93005; 99285; A4216